=== PATIENT | female | born 1970 | race Caucasian/White ===

== ENCOUNTER 2021-04-22 01:40 | Day surgery (SDC) | payer BC, SELFPAY ==
[2021-04-16 14:53] VITALS: BMI 46.0
--- NOTE | 2021-04-19 12:44 | PM.IMHP ---
H&P: HPI History of Present Illness Date/Time: 04/19/21 12:44 51 y/o amenorrheic with Mirena IUD. She was found to have endometrial hyperplasia on EMBX done due to JAZ pap smear. She opted for hysterectomy for treatment since she's already on progestin with Mirena IUD Chief Complaint: Endometrial hyperplasia Review of Systems Review of Systems: All systems reviewed & are unremarkable except as noted in HPI and below PMFSH Past Medical History Medical History Acid reflux Anxiety History of miscarriage 1998 History of vaginal delivery x 2 10/22/2001 10/08/2005 Seasonal allergies Surgical History Surgical History [place] teeth removed Family History Family History Father History of cancer Hypertension Heart disease Mother Diabetes mellitus History of cancer Grandparent No problems noted. Social History Social History Smoking status: Never smoker Alcohol intake: never Substance use: never Spiritual care concerns: No Meds Home Medications and Allergies Home Medications Medication Instructions Recorded Confirmed Type cholecalciferol (vitamin D3) 25 25 mcg PO BID cap 02/12/21 04/16/21 History mcg (1,000 unit) capsule evening primrose oil 500 mg capsule 500 mg PO BID 02/12/21 04/16/21 History pantoprazole 40 mg tablet,delayed 40 mg PO QAM 02/12/21 04/16/21 History release sertraline 100 mg tablet 100 mg PO DAILY 02/12/21 04/16/21 History Xyzal 5 mg PO DAILY 04/16/21 04/16/21 History black cohosh 40 mg PO DAILY 04/16/21 04/16/21 History fluticasone propionate 1 spray INTRANASAL PRN PRN 04/16/21 04/16/21 History crystal extract 750 mg PO DAILY 04/16/21 History Allergies Allergy/AdvReac Type Severity Reaction Status Date / Time amoxicillin Allergy Intermediate Rash Verified 04/16/21 14:31 Exam Const: General: healthy appearing, no acute distress, alert and awake Resp: Auscultation: clear to auscultation bilaterally Cardio: Rate: regular rate Rhythm: regular rhythm GI: Inspection: non-distended GI Palp: Yes Soft to palpation and No Tenderness to palpation present (GI) : Bimanual exam- vagina & uterus: normal bimanual exam, uterine size normal, consistency normal, uterine mobility normal, non-tender and soft Bimanual Exam- Adnexa, other: normal adnexae, no masses and No adnexal tenderness Extrem: General: no pedal edema and no calf tenderness Psych: Mental Status: mental status grossly normal Assessment and Plan Assessment and plan (1) Endometrial hyperplasia without atypia: Code(s): N85.00 - Endometrial hyperplasia, unspecified Status: Acute Assessment and Plan: She signed consent after risks, benefits, complications, and alternatives discussed for TLH/BSO. Risks include but are not limited to bleeding; transfusion; infection; damage to bowel, bladder, ureter, and/or blood vessels; need for larger incision, longer recovery time, and/of further surgeries; risk of anesthesia. She understands removing both ovaries will put her into menopause, and we'll see what her symptoms are like without hormones at first. She expressed understanding and wishes to proceed.
[2021-04-22] VITALS (10 sets, daily range): BP systolic 126–152; BP diastolic 56–80; PULSE 56–89; RESP 12–19; TEMP 36.1–37.2; O2SAT 95–100
--- NOTE | 2021-04-22 08:29 | P.PNAN_ITS ---
Anes - Initial Pre Proc Eval Procedure: Operation Date: 04/22/21 12:00 Proposed Procedures p Total Laparoscopic Hysterectomy with Bilateral Salpingo-oophorectomy - Lyudmila Coyle MD Date/Time: 04/22/21 08:29 Surgeon: Lyudmila Coyle MD Pre Op Diagnosis: Endometrial Hyperplasia Patient Data Age: 51 Gender: F Height: 1.6 m Weight: 117.9 kg Allergies Allergy/AdvReac Type Severity Reaction Status Date / Time amoxicillin Allergy Intermediate Rash Verified 04/16/21 14:31 Home Medications Medication Instructions Recorded Confirmed Type cholecalciferol (vitamin D3) 25 25 mcg PO BID cap 02/12/21 04/16/21 History mcg (1,000 unit) capsule evening primrose oil 500 mg capsule 500 mg PO BID 02/12/21 04/16/21 History pantoprazole 40 mg tablet,delayed 40 mg PO QAM 02/12/21 04/16/21 History release sertraline 100 mg tablet 100 mg PO DAILY 02/12/21 04/16/21 History Xyzal 5 mg PO DAILY 04/16/21 04/16/21 History black cohosh 40 mg PO DAILY 04/16/21 04/16/21 History fluticasone propionate 1 spray INTRANASAL PRN PRN 04/16/21 04/16/21 History crystal extract 750 mg PO DAILY 04/16/21 History Patient hx anesthesia problems: none Family hx anesthesia problems: none PMFSH Past Medical History Medical History (Updated 04/22/21 @ 08:30 by Francisco Javier Leslie MD) Acid reflux Anxiety Atypical glandular cells of undetermined significance (JAZ) on cervical Pap smear Endometrial hyperplasia without atypia History of miscarriage 1998 History of vaginal delivery x 2 10/22/2001 10/08/2005 Morbid obesity with BMI of 45.0-49.9, adult Seasonal allergies Surgical History Surgical History [place] teeth removed Family History Family History Father History of cancer Hypertension Heart disease Mother Diabetes mellitus History of cancer Grandparent No problems noted. Social History Social History Smoking status: Never smoker Alcohol intake: never Substance use: never Spiritual care concerns: No Anes - Eval Final PreProcedure Day of Procedure 04/22/21 08:29 Patient weight: morbidly obese Heart: regular rate and rhythm Lungs: clear to auscultation and normal air movement Airway: Mallampati scale class II Neurological: alert and oriented Last oral intake: >/= 8 hours ASA classification: III Emergent: no Anesthetic plan: proceed Anesthesia type and monitoring: general ETT Informed Consent: The patient's anesthetic plan and its attendant risks and benefits were discussed with the patient/family/POA. Questions were solicited and answers provided to the satisfaction of the patient/family/POA.
[2021-04-22] MEDS: ACETAMINOPHEN 500 MG TABLET 1000 MG PO (10:34)
[2021-04-22] MEDS: KETOROLAC 15 MG/ML VIAL (*BKC) IV PUSH (10:35)
[2021-04-22] MEDS: LACTATED RINGERS 1,000 ML 30 ML IV CONT ×2 (10:45→15:00)
--- NOTE | 2021-04-22 11:30 | WPDHPUPDATE1 ---
History and Physical Update Update Date/Time: 04/22/21 11:30 History and Physical has been reviewed, including an updated exam of the patient. There are NO changes in the patient's condition. Risks, benefits, and alternatives have been discussed and questions answered. Patient agrees to proceed with procedure.
[2021-04-22] MEDS: ceFAZolin 2 GM/D5W 50 ML 2 GM/50 ML BAG IVPB (12:23)
[2021-04-22] MEDS: BUPIVACAINE/EPINEPHRINE 0.5% 50 ML VIAL (13:16)
--- NOTE | 2021-04-22 14:52 | W.PM.PROC2 ---
Procedure Note - Detailed Date of Procedure 04/22/21 Pre-op Diagnosis Endometrial Hyperplasia Post-op Diagnosis same Procedure Performed TLH/BSO Surgeon Lyudmila Coyle MD Anesthesia general Indications Endometrial hyperplasia Findings normal uterus, tubes, ovaries, appendix Description of Procedure She was taken to the operating room where general anesthesia was obtained. She was prepared and draped in the normal sterile fashion in the dorsal lithotomy position. A speculum was placed in the vagina. The anterior lip of the cervix was grasped with single-tooth tenaculum. A uterine manipulator was placed easily. The speculum was removed. Attention was then turned to the abdomen. Marcaine was injected infraumbilically. A 5 mm skin incision was made the in the infraumbilical fold. A 5 mm non bladed trocar was placed with the camera in the trocar under direct visualization. Insufflation was begun and she was placed in Trendelenburg. A 10 mm trocar was then placed in the right lower quadrant under direct visualization, and a 5 mm trocar in the left lower quadrant. Inspection of the pelvis revealed the findings as noted above. The right infundibulopelvic ligament was grasped, coagulated, and transected using the Harmonic scalpel. The mesosalpinx was serially clamped and transected. The right round ligament was then transected. The bladder flap was created from the right side. The left infundibulopelvic pelvic ligament was then grasped, coagulated, and transected using the Harmonic scalpel. The mesosalpinx was serially clamped and transected. The round ligament was transected. The bladder flap was created from the left side, meeting the flap from the right. The bladder flap was pushed down further with a Kittner. The right uterine artery was skeletonized, clamped, and transected using the Harmonic scalpel with excellent hemostasis visualized. Another couple bites were taken down the broad ligament to the level of the left uterosacral ligament had been reached. The left uterine artery was then clamped, coagulated, and transected. A couple bites were taken down the broad ligament to level of the uterosacral ligament was reached on the left side. The right uterosacral ligament was then transected. The bladder flap was pushed down further with a Kittner, and any small bands of tissue between the uterus and bladder were easily taken down using the harmonic scalpel. A sponge stick was placed in the vagina and pressed against the anterior cul-de-sac. A colpotomy incision was used was made using the Harmonic scalpel against the sponge stick. The vagina was then circumferentially incised, hugging against the cervix. Eventually the cervix uterus, tubes and ovaries were all freed from the surrounding vaginal tissue. The cervix and uterus were pressed down as far as possible into the vaginal canal. Attention was then turned to the vagina. A speculum was placed. The cervix was easily visualized and grasped with a tenaculum. Gentle traction was applied, and the entire uterus along with the tubes and ovaries were brought easily through the vagina. A moist blue towel was placed in the vagina to help hold in pneumoperitoneum. Attention was then turned back to the abdomen. Due to difficulty visualizing the vaginal cuff due to a redundant peritoneum on the bladder flap, a 4th trocar was placed in the midline suprapubic area under direct visualization. This was a 5 mm trocar. The vaginal cuff was then reapproximated using 0 Vicryl interrupted sutures. Three sutures were used for reapproximation. The abdomen was copiously irrigated. All operative sites were found to be hemostatic. The right lower quadrant trocar was removed. The Ajith-Christine device along with an 0 Vicryl was used to close the fascia of the right lower quadrant incision. The pneumoperitoneum was allowed to escape. All trocars were removed. All 4 skin incisions were closed using 4-0
[2021-04-22] MEDS: DEXTROSE 5%/LACTATED RINGERS 1,000 ML 125 ML IV CONT (16:47)
[2021-04-22] MEDS: KETOROLAC 30 MG/ML VIAL (*BKC) IV PUSH (16:54)
[2021-04-22] MEDS: SIMETHICONE 80 MG TAB.CHEW PO ×2 (18:57→22:20)
[2021-04-22] MEDS: HYDROcodone/acetaminophen (*CRX) 10-325 MG TABLET 1 TAB PO ×2 (18:57→22:20)
--- NOTE | 2021-04-22 19:03 | OBPPTRN ---
1619 Patient transferred to post room #287 via bed. Oriented to unit, room, information board, admission packet and security measures. Patient verbalizes understanding.
[2021-04-22] MEDS: ENOXAPARIN 40 MG/0.4 ML SYRINGE SUB-Q (19:19)
[2021-04-22] MEDS: IBUPROFEN 600 MG TABLET PO (22:20)
[2021-04-22] MEDS: PANTOPRAZOLE 40 MG TABLET PO (22:31)
[2021-04-22] MEDS: SERTRALINE HCL 50 MG TABLET 100 MG PO (22:32)
[2021-04-23] MEDS: HYDROcodone/acetaminophen (*CRX) 10-325 MG TABLET 1 TAB PO ×4 (04:25→17:39)
[2021-04-23] MEDS: IBUPROFEN 600 MG TABLET PO ×2 (04:25→12:15)
[2021-04-23 04:44] VITALS: BP 132/69; PULSE 76; RESP 16; TEMP 36.1; O2SAT 97
[2021-04-23] MEDS: SIMETHICONE 80 MG TAB.CHEW PO ×2 (05:45→08:19)
[2021-04-23 05:56] LABS: Basophils Percent Auto 0.2 % (0.2-1.2); Hematocrit 38.6 % (37.0-47.0); Hemoglobin 11.8 g/dL (12.0-15.0); Immature Granulocyte Absolute 0.09 K/mm3 (0.00-0.031); Immature Granulocyte Percent A 0.8 % (0-0.5); Lymphocytes Absolute Auto 0.95 K/mm3 (0.9-3.2); Mean Corpuscular HGB Conc 30.6 g/dl (32-36); Mean Corpuscular Hemoglobin 25.3 pg (26-34); Mean Corpuscular Volume 82.7 fl (80-100); Monocytes Absolute Auto 0.6 K/mm3 (0.1-0.6); Monocytes Percent Auto 5.3 % (2.6-8.5); Neutrophils Absolute Auto 10.2 K/mm3 (1.3-6.7); Neutrophils Percent Auto 85.7 % (45.5-73.1); Platelet Count Result 294 k/mm3 (150-375); Red Blood Count 4.67 M/mm3 (4.2-5.4); Red Cell Distribution Width 15.6 % (11.5-14.5); White Blood Count 11.9 K/mm3 (4.5-10.0)
[2021-04-23 06:14] LABS: Anion Gap 7 mmol/L (8-16); Blood Urea Nitrogen 11 mg/dL (7-17); Calcium 8.6 mg/dL (8.4-10.2); Carbon Dioxide 28 mmol/L (22-30); Chloride 100 mmol/L (98-107); Estimated CRCL calculation 90 ml/min; Estimated Glomerular Filt Rate > 60; Glucose 138 mg/dL (65-110); Potassium 4.1 mmol/L (3.4-5.0); Sodium 135 mmol/L (137-145)
[2021-04-23 08:20] VITALS: BP 102/54; PULSE 64; RESP 16; TEMP 36.6; O2SAT 96
--- NOTE | 2021-04-23 09:18 | P.PNAN_ITS ---
Anes - Prog Note Post-Op Date/Time: 04/23/21 09:18 Cardiovascular status: normal Respiratory status: normal Airway patency: baseline Mental status: baseline Post-Op hydration status: normal Vital Signs: Last Vital Signs Temp 36.1 C L 04/23/21 04:44 Pulse 76 04/23/21 04:44 Resp 16 04/23/21 04:44 BP 132/69 04/23/21 04:44 Pulse Ox 97 04/23/21 04:44 Pain Score (VAS): 0 I/O: Intake & Output 04/22/21 04/23/21 04/23/21 23:59 07:59 15:59 Intake Total 920 1000 Output Total 1400 850 Balance -480 150 Laboratory Tests 04/23/21 04:24 04/23/21 04:24 04/23/21 04/23/21 04:24 04:24 WBC 11.9 H RBC 4.67 Hgb 11.8 L Hct 38.6 MCV 82.7 MCH 25.3 L MCHC 30.6 L RDW 15.6 H Plt Count 294 MPV 10.0 Immature Gran % (Auto) 0.8 H Neut % (Auto) 85.7 H Lymph % (Auto) 8.0 L [place] % (Auto) 5.3 Eos % (Auto) 0.0 Baso % (Auto) 0.2 Lymph # (Auto) 0.95 [place] # (Auto) 0.6 Eos # (Auto) 0.0 Baso # (Auto) 0.0 Abs Immat Gran (auto) 0.09 H Absolute Neuts (auto) 10.2 H Absolute Nucleated RBC 0.0 Nucleated RBC % 0.0 Sodium 135 L Potassium 4.1 Chloride 100 Carbon Dioxide 28 Anion Gap 7 L BUN 11 Creatinine 0.80 Estim Creat Clear Calc 90 Estimated GFR > 60 Glucose 138 H Calcium 8.6 Post-procedural complaints: none Patient Feedback: Patient satisfied with anesthetic care.
--- NOTE | 2021-04-23 16:13 | PM.GYNPNOP ---
MEAT PICKLER - A/P Postoperative Procedures: Procedures Operation Date: 04/22/21 12:00 Actual Procedure Side Surgeon p Total Laparoscopic Hysterectomy with Bilateral Salpingo-oophorectomy Bilateral Lyudmila Coyle MD Postoperative day: 1 (s/p hysterectomy) Postoperative status: doing well Postoperative plan: routine post-op care and discharge (and follow up in office in 1 week) Time Spent With Patient Time: Total time spent is greater than 50% in coordination of care (as documented) at patient's floor/unit and/or counseling patient: Time with patient: less than 15 minutes MEAT PICKLER- PN:Subj Post-Op Subjective Date/time seen: 04/23/21 16:13 Subjective: patient has no complaints, pain is well controlled and other (Tolerating regular diet. + flatus. Voiding without problems) Exam Const: General: no acute distress Resp: Auscultation: clear to auscultation bilaterally Cardio: Rate: regular rate Rhythm: regular rhythm GI: Inspection: non-distended and incision (Intact without erythema, drainage, or induration) GI Palp: Yes abdominal tenderness (appropriate) and Yes Soft to palpation Extrem: General: no edema MEAT PICKLER - PN: Obj Data Vital Signs Vital Signs: Vital Signs - 24 hr 04/22/21 18:30 04/22/21 19:00 04/23/21 04:44 Temperature 36.6 C 36.1 C L Pulse Rate 82 76 Respiratory Rate 18 18 16 Blood Pressure 152/78 H 132/69 Pulse Oximetry 97 04/23/21 08:20 Temperature 36.6 C Pulse Rate 64 Respiratory Rate 16 Blood Pressure 102/54 L Pulse Oximetry 96 Intake/Output Intake/Output: Intake & Output 04/20/21 04/21/21 04/22/21 04/23/21 23:59 23:59 23:59 23:59 Intake Total 1570 1400 Output Total 1550 1450 Balance 20 -50 Meds/Results Medications: Active Medications Generic Name Dose Route Start Last Admin Trade Name Freq PRN Reason Stop Dose Admin Hydrocodone Bitart/Acetaminophen 1 tab 04/22/21 15:56 Hydrocodone/Acetaminophen (*Crx) 5-325 Mg Tablet PO Q3H PRN Pain Rated 5 or Less Hydrocodone Bitart/Acetaminophen 1 tab 04/22/21 15:56 04/23/21 12:14 Hydrocodone/Acetaminophen (*Crx) 10-325 Mg Tablet PO 1 tab Q3H PRN Administration Pain Rated 6 or Greater Bisacodyl 10 mg 04/22/21 15:56 Bisacodyl 10 Mg Suppository RECTAL ONCE PRN Constipation Enoxaparin Sodium 40 mg 04/22/21 20:00 04/22/21 19:19 Enoxaparin 40 Mg/0.4 Ml Syringe SUB-Q 40 mg Q24H GEGE Administration Fluticasone Propionate 1 spray 04/22/21 15:56 Fluticasone Propionate 0.05% Na Spr 16 Gm Btl (*Bkc) NASAL Q12H PRN Allergy Symptoms Dextrose/Lactated Ringer's 1,000 mls @ 125 mls/hr 04/22/21 15:56 04/23/21 01:03 Dextrose 5%/Lactated Ringers IV CONT Not Given .Q8H GEGE Ibuprofen 600 mg 04/22/21 15:56 04/23/21 12:15 Ibuprofen 600 Mg Tablet PO 600 mg Q6H PRN Administration Cramping Ketorolac Tromethamine 30 mg 04/22/21 15:56 04/22/21 16:54 Ketorolac 30 Mg/Ml Vial (*Bkc) IV PUSH 04/27/21 15:57 30 mg Q6H PRN Administration Pain Rated 4-6 Metoclopramide HCl 10 mg 04/22/21 15:56 Metoclopramide Hcl Inj 10 Mg/2 Ml Vial IV PUSH Q6H PRN Nausea Morphine Sulfate 4 mg 04/22/21 15:56 Morphine Sulfate (*Crx) 4 Mg/Ml Inj IV PUSH Q4H PRN Pain Rated 7-10 Naloxone HCl 0.1 mg 04/22/21 15:56 Naloxone Hcl 0.4 Mg/Ml Vial IV PUSH Q2M PRN Respiratory rate less than 10 Non-Formulary Medication 5 mg 04/23/21 09:00 Xyzal PO 05/23/21 09:01 DAILY [facility] Ondansetron HCl 4 mg 04/22/21 15:56 Ondansetron Inj 4 Mg/2 Ml Vial IV PUSH Q6H PRN Nausea Pantoprazole Sodium 40 mg 04/22/21 22:25 04/22/21 22:31 Pantoprazole 40 Mg Tablet PO 40 mg HS GEGE Administration Sertraline HCl 100 mg 04/22/21 21:00 04/22/21 22:32 Sertraline Hcl 50 Mg Tablet PO 100 mg HS GEGE Administration Simethicone 80 mg 04/22/21 15:56 04/23/21 08:19 Simethicone 80 Mg Tab.Chew PO 80 mg Q
--- NOTE | 2021-04-23 16:13 | PM.DS ---
DS: Admitting Diagnosis Admitting Diagnosis endometrial hyperplasia DS: Discharge Diagnosis Discharge Diagnosis (1) Endometrial hyperplasia without atypia: Code(s): N85.00 - Endometrial hyperplasia, unspecified Status: Acute DS: Summary Hospital Course Reason for hospitalization: hysterectomy Hospital Course: She was admitted on 04/22/2021 for a planned total laparoscopic hysterectomy with bilateral salpingo oophorectomy due to endometrial hyperplasia. Her surgery was uneventful. She is meeting all postoperative milestones on postoperative day 1. She has expressed desire to be discharged home. She is being sent home with follow-up in 1 week and prescriptions for ibuprofen and Forbes to use as needed in addition to her usual home medications. Status at Discharge Functional status at discharge: independent ambulation Overall status at discharge: patient is progressing back to baseline Time Spent with Patient Time attestation: Total time spent providing and/or coordinating discharge services: Time spent: Less than 30 minutes DS: Data Data Completed and Pending Pending studies at discharge: Pending at discharge 04/22/21 14:15 Surgical [PTH] Routine Labs on day of discharge: Labs from last 24 hours 04/23/21 04/23/21 04:24 04:24 WBC 11.9 H RBC 4.67 Hgb 11.8 L Hct 38.6 MCV 82.7 MCH 25.3 L MCHC 30.6 L RDW 15.6 H Plt Count 294 MPV 10.0 Immature Gran % (Auto) 0.8 H Neut % (Auto) 85.7 H Lymph % (Auto) 8.0 L [place] % (Auto) 5.3 Eos % (Auto) 0.0 Baso % (Auto) 0.2 Lymph # (Auto) 0.95 [place] # (Auto) 0.6 Eos # (Auto) 0.0 Baso # (Auto) 0.0 Abs Immat Gran (auto) 0.09 H Absolute Neuts (auto) 10.2 H Absolute Nucleated RBC 0.0 Nucleated RBC % 0.0 Sodium 135 L Potassium 4.1 Chloride 100 Carbon Dioxide 28 Anion Gap 7 L BUN 11 Creatinine 0.80 Estim Creat Clear Calc 90 Estimated GFR > 60 Glucose 138 H Calcium 8.6 Discharge Plan Discharge Patient Disposition: Home, Self-Care Stand Alone Forms: General Discharge Instructions Follow-up/Referrals: Lyudmila Coyle MD [Physician] - 1 Week Discharge Medications: New hydrocodone-acetaminophen 5-325 mg Tablet 1 tablet PO Q4H PRN (Reason: Pain Rated 5 Or Less) Qty: 40 RF: 0 ibuprofen 600 mg Tablet 600 mg PO Q6H PRN (Reason: Cramping) Qty: 60 RF: 0 Continued pantoprazole 40 mg tablet,delayed release (DR/EC) 40 mg PO QAM RF: 0 sertraline 100 mg tablet 100 mg PO DAILY RF: 0 evening primrose oil 500 mg capsule 500 mg PO BID RF: 0 cholecalciferol (vitamin D3) 25 mcg (1,000 unit) capsule 25 mcg PO BID RF: 0 fluticasone propionate 50 mcg/actuation spray,suspension 1 spray INTRANASAL PRN PRN (Reason: Allergy Symptoms) RF: 0 black cohosh 40 mg PO DAILY RF: 0 Xyzal 5 mg PO DAILY RF: 0 crystal extract 750 mg PO DAILY RF: 0 Quality VTE Prophylaxis VTE prophylaxis: mechanical ordered and pharmacologic ordered
== END 2021-04-23 18:00 | disposition home or self-care (01) ==
LOC: ANHSURGERY 09:57 → ANHOB2 22:52
PROVIDERS: PCP Internal Medicine; Visit Provider Obstetrics & Gynecology
PROC: 0UT9FZZ Resection of Uterus, Via Natural or Artificial Opening With Percutaneous Endoscopic Assistance (ICD-10-PCS; CPT 58571; principal; 2021-04-22 12:00)
DX: N80.0 Endometriosis of uterus (principal); D25.1 Intramural leiomyoma of uterus; D25.0 Submucous leiomyoma of uterus; D25.2 Subserosal leiomyoma of uterus; N83.8 Other noninflammatory disorders of ovary, fallopian tube and broad ligament; F41.9 Anxiety disorder, unspecified; K21.9 Gastro-esophageal reflux disease without esophagitis; E66.01 Morbid (severe) obesity due to excess calories; Z68.42 Body mass index [BMI] 45.0-49.9, adult
CPT/HCPCS: 58571; 36415; 80048; 85025; 88307; 99199; A9270; J0690; J1100; J1650; J1885; J2250; J2405; J2704; J2710; J3010; J7030; J7120; J7121